=== PATIENT | female | born 1980 | race African-American/Black ===

== ENCOUNTER 2018-05-24 12:46 | Emergency (ER) | payer OTHER ==
[~2018-05-24] VITALS: Ht 162.6 cm; Wt 118.8 kg
[~2018-05-24 12:46] MED LIST: ACETAMINOPHEN-1 EAC1 PO; IBUPROFEN 600600 M1 PO; IBUPROFEN 800800 MG PO; NORCO 5-325 TA1 EACH PO; TRINATE TABLET1 TAB PO; TYLENOL325 MG PO
[2018-05-24] MEDS ORDERED: ZPAK PO (14:25)
[2018-05-24 14:46] VITALS: BP 149/102
== END 2018-05-24 14:55 | disposition home or self-care (01) ==
LOC: ER 12:46
DX: J06.9 Acute upper respiratory infection, unspecified (principal); J02.9 Acute pharyngitis, unspecified; J20.9 Acute bronchitis, unspecified; Z88.0 Allergy status to penicillin

== ENCOUNTER 2018-09-07 15:18 | Emergency (ER) | payer OTHER ==
[~2018-09-07] VITALS: Ht 162.6 cm; Wt 122.5 kg
[~2018-09-07 15:18] MED LIST changes: +ZPAK PO
[2018-09-07] MEDS ORDERED: HYDROXYZINE HCL25 M1 PO (18:33)
[2018-09-07 18:57] VITALS: BP 142/83
--- NOTE | 2018-09-08 10:46 | EKG ---
[place] [address] [facility] [place] [address] ELECTROCARDIOGRAM REPORT Name: HARMONY NORTH Room #: [facility] [id number] Admission: 09/07/18 Attend Phys: Discharge: 09/07/18 Date of : 82 Report #: [id number] THIS REPORT FOR: //name// [facility] ED Test Date: 2018-09-07 Test Time: 16:35:11 Pat Name: HARMONY NORTH Department: Room: Gender: F Book Reviewer: : 1980 Requested By: Violeta Garcia Order Number: [id number] MD: Dillan Clemons Measurements Intervals [place] Rate: 94 P: 2 MS: 127 QRS: 48 QRSD: 88 T: 8 QT: 332 QTc: 416 Interpretive Statements Sinus rhythm ST elev, probable normal early repol pattern No previous ECG available for comparison Electronically Signed On 09-08-2018 10:45:51 CANDY SEPARATOR HARD by Dillan Clemons [email or web address] <ELECTRONICALLY SIGNED> By: Dillan Clemons MD, [facility] 09/08/18 1045 [id number] [id number] Dillan Clemons MD, FACC /EPI
== END 2018-09-07 18:57 | disposition home or self-care (01) ==
LOC: ER 15:18
DX: F41.9 Anxiety disorder, unspecified (principal); I10 Essential (primary) hypertension; G47.00 Insomnia, unspecified; F32.9 Major depressive disorder, single episode, unspecified; E66.01 Morbid (severe) obesity due to excess calories; Z68.42 Body mass index [BMI] 45.0-49.9, adult; Z88.0 Allergy status to penicillin

== ENCOUNTER 2020-01-06 22:42 | Emergency (ER) | payer OTHER ==
[~2020-01-06] VITALS: Ht 162.6 cm; Wt 136.1 kg
[~2020-01-06 22:42] MED LIST changes: +HYDROXYZINE HCL25 M1 PO
[2020-01-06] MEDS ORDERED: LISINOPRIL2.5 MG PO (22:46)
[2020-01-06] MEDS ORDERED: METRONIDAZOLE500 M4 (22:47)
[2020-01-06 23:52] VITALS: BP 122/70
[2020-01-07] MEDS ORDERED: PEPCID20 MG PO (00:35)
[2020-01-07] MEDS ORDERED: PREDNISONE 20 M20 MG PO (00:35)
== END 2020-01-07 00:54 | disposition home or self-care (01) ==
LOC: ER 22:42
DX: T78.3XXA Angioneurotic edema, initial encounter (principal); I10 Essential (primary) hypertension; E66.01 Morbid (severe) obesity due to excess calories; Z79.899 Other long term (current) drug therapy; Z88.0 Allergy status to penicillin; Y92.89 Other specified places as the place of occurrence of the external cause

== ENCOUNTER 2020-01-07 05:52 | Inpatient (IN) | payer OTHER ==
[~2020-01-07] VITALS: Ht 162.6 cm; Wt 114.3 kg
[~2020-01-07 05:52] MED LIST changes: +LISINOPRIL2.5 MG PO; +METRONIDAZOLE500 M4; +PEPCID20 MG PO; +PREDNISONE 20 M20 MG PO
[2020-01-07 05:57] VITALS: BP 180/115
[2020-01-07 10:00] VITALS: BP 125/108
[2020-01-07 10:21] VITALS: BP 140/92
[2020-01-07 10:57] LABS: HEMATOCRIT 45.3 % (37.0-47.0); MCH 29.7 pg (26.0-34.0); MCHC 33.2 g/dL (28.0-37.0); MCV 89.6 fL (80.0-100.0); RBC 5.06 mil/uL (4.20-5.00); RDW 14.7 % (10.5-14.5); WBC 7.3 thou/uL (4.0-11.0)
[2020-01-07 11:07] LABS: ALBUMIN 3.7 g/dL (3.4-5.0); CALCIUM 9.5 mg/dL (8.5-10.1); CREATININE 0.8 mg/dL (0.6-1.0); MAGNESIUM 2.1 mg/dL (1.8-2.4); POTASSIUM 4.5 mmol/L (3.5-5.1); TOTAL BILIRUBIN 0.6 mg/dL (<0.1-1.0); TOTAL PROTEIN 8.2 g/dL (6.4-8.2)
[2020-01-07 12:06] VITALS: BP 98/52
--- NOTE | 2020-01-07 16:37 | NUR ---
PT ARRIVED FROM ED FOR ANGIOEDMM OF LIPS. ALERT X4, DENIES PAIN, DENIES SOB. PT VOICED SHE DRINKS >6 BEERS DAILY. UP AB MARK IN ROOM AND TO BATHROOM. NO BM NOTED TODAY. ADMISSION ASSESMENT, HISTORY, AND EDUCATION COMPLETED.ST EVALUATED PT NOTED NO DIFFICULTY WITH SWOLLOWING. REGULAR DIET TO START AT DINNER. CALL LIGHT AND PERSONAL ITEMS IN REACH.
[2020-01-07 17:15] VITALS: BP 131/83
[2020-01-07 20:15] VITALS: BP 133/84
[2020-01-08 04:45] VITALS: BP 138/84
--- NOTE | 2020-01-08 05:27 | NUR ---
PATIENTS CARE WAS ASSUMED AT SHIFT CHANGE. PATIENT WAS ASSESSED AND MEDS WERE PASSED. PATIENT DID TAKE A SHOWER LAST NIGHT BEFORE BED. PATIENT HAD A PEACEFUL NIGHT. PATIENT DID SLEEP APPROX SEVEN HOURS. HORLEY ROUNDS WERE MADE. THE BED IS IN A LOW AND LOCKED POSITION. THE BED ALARM IS ON.
[2020-01-08 07:50] VITALS: BP 142/81
--- NOTE | 2020-01-08 10:30 | NUR ---
Assess due to high BMI43.3=extreme class III obesity. Pt admitted with facial angioedema, lips/tongue swelling. Dehydrated and started on IVF. ST has assessed and indicated functional swallow with recs for reg diet and thin liquids. On prednisone, glucose of 141 slightly elevated. Recommend to continue to check BG as pt may require carb control diet which would also be beneficial to promote wt loss. Low nutrition risk
[2020-01-08 11:35] VITALS: BP 124/77
--- NOTE | 2020-01-08 15:39 | NUR ---
Patient admits with facial edema. Patient reports 2 children 17, 4 she reports her mother assisting with children while she is in hospital. She reports she works for [employer] and not working from home. 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 She has health insurance and PCP Dr Mariano. Patient eager for dc antipate no dc needs.
--- NOTE | 2020-01-08 18:04 | NUR ---
RECEIVED PT'S CARE AROUND 0710; PT. AOX4; DURING AM ASSESSMENT C/O HEADACHE; NO PRN PAIN MEDICATION ON EMAR; PHYSICIAN NOTIFIED; PT. ASKING WHEN MIGHT GET BP MEDICATION; UPDATE BASED ON PHYSICIAN'S NOTES; PT. ST. "THEY DO NOT KNOW" WHAT CAUSE THE ALLERGY; ST. "I THINK IS THE ANIMALS BECAUSE I WAS AROUND AND DID NOT HAVE BENADRYL"; PHYSICIAN NOTIFIED ABOUT PT'S CONCERNS; AM MEDICATIONS GIVEN; PRN PAIN MEDICATION GIVEN; RE-ASSESSMENT PT. ST. DECREASE PAIN; SR ON THE MONITOR; AMBULATED OVER HALLWAY SEVERAL TIMES; BP WNL; ASSESSMENT CHARGED; FOLLOWING POC; WILL PASSED ON REPORT;
[2020-01-08 20:15] VITALS: BP 147/102
[2020-01-09 04:45] VITALS: BP 151/91
--- NOTE | 2020-01-09 05:59 | NUR ---
PATIENTS CARES WERE ASSUMED AT SHIFT CHANGE. PATIENT WAS ASSESSED AND MEDS WERE PASSED. PATIENT STATED SHE IS READY TO GO HOME. SHE HAS QUESTIONS ABOUT HER BP MEDS AND QUESTIONS FOR THE DOC. ROUNDING WAS DONE AND THE BED IS IN A LOW AND LOCKED POSTION. PATIENT IS INDEPENDENT IN HER ROOM WITH A STABLE GAITE
[2020-01-09 08:00] VITALS: BP 144/89
--- NOTE | 2020-01-09 10:52 | NUR ---
RECEIVED PT'S CARE AROUND 0710; PT. ON BED; ALERT; DURING AM ASSESSMENT AOX4; NO C/O PAIN; AM MEDICATION GIVEN; PER REPORT PT. HAS QUESTIONS ABOUT MEDICATION & D/C; EDUCATED ABOUT ASKING PHYSICIAN QUESTIONS ABOUT BP MEDICATION DURING ROUNDING; ST. UNDERSTANDING; SR ON THE MONITOR; ASSESSMENT CHARGED; FOLLOWING POC; MONITORING;
[2020-01-09] MEDS ORDERED: PREDNISONE 5 MG5 M1 PO (13:49)
[2020-01-09] MEDS ORDERED: CLARITIN10 MG PO (13:49)
[2020-01-09] MEDS ORDERED: HYDROCHLOROTHIA25 M2 PO (13:49)
[2020-01-09 15:31] VITALS: BP 144/89
== END 2020-01-09 16:42 | disposition home or self-care (01) | DRG 916 ==
LOC: ER 05:52 → EROBS 09:54 → 2N 09:54
PROVIDERS: ADMIT Internal Medicine
DX: T78.3XXA Angioneurotic edema, initial encounter (principal); Z68.41 Body mass index [BMI] 40.0-44.9, adult; T46.4X5A Adverse effect of angiotensin-converting-enzyme inhibitors, initial encounter; E66.01 Morbid (severe) obesity due to excess calories; F41.9 Anxiety disorder, unspecified; F32.9 Major depressive disorder, single episode, unspecified; I10 Essential (primary) hypertension; E86.0 Dehydration; Z71.3 Dietary counseling and surveillance; Z88.0 Allergy status to penicillin; Z88.8 Allergy status to other drugs, medicaments and biological substances; Z79.899 Other long term (current) drug therapy
CPT/HCPCS: 10081

== ENCOUNTER 2021-03-26 21:40 | Emergency (ER) | payer OTHER ==
[~2021-03-26] VITALS: Ht 162.6 cm; Wt 122.5 kg
[~2021-03-26 21:40] MED LIST changes: +CLARITIN10 MG PO; +HYDROCHLOROTHIA25 M2 PO; +PREDNISONE 5 MG5 M1 PO
[2021-03-26 22:18] VITALS: BP 145/97
== END 2021-03-26 22:18 | disposition home or self-care (01) ==
LOC: ER 21:40
DX: Z20.822 Contact with and (suspected) exposure to COVID-19 (principal); F41.9 Anxiety disorder, unspecified; F32.9 Major depressive disorder, single episode, unspecified; I10 Essential (primary) hypertension; E66.9 Obesity, unspecified; Z79.899 Other long term (current) drug therapy; Z88.0 Allergy status to penicillin; Z88.8 Allergy status to other drugs, medicaments and biological substances; Z91.048 Other nonmedicinal substance allergy status

== ENCOUNTER 2021-08-06 22:40 | Emergency (ER) | payer OTHER ==
[~2021-08-06] VITALS: Ht 162.6 cm; Wt 117.9 kg
[2021-08-06] MEDS ORDERED: TRIAMTERENE/HCT1 CA1 PO (22:55)
[2021-08-06] MEDS ORDERED: NORVASC10 MG PO (23:12)
[2021-08-06 23:40] VITALS: BP 163/95
== END 2021-08-06 23:59 | disposition home or self-care (01) ==
LOC: ER 22:40
DX: I10 Essential (primary) hypertension (principal); F41.9 Anxiety disorder, unspecified; F32.9 Major depressive disorder, single episode, unspecified; Z79.899 Other long term (current) drug therapy; Z88.0 Allergy status to penicillin